=== PATIENT | male | born 1945 | race African-American/Black ===

== ENCOUNTER 2019-06-23 11:17 | Emergency (ER) | payer MEDICARE, MEDICAID | END 2019-06-23 12:00 | disposition home or self-care (01) | LOC: MADERS 11:17 | DX: J06.9 Acute upper respiratory infection, unspecified (principal); I10 Essential (primary) hypertension; F17.210 Nicotine dependence, cigarettes, uncomplicated | CPT/HCPCS: 99283 ==

== ENCOUNTER 2020-03-18 15:52 | Outpatient (CLI) | payer MEDICARE, MEDICAID ==
--- NOTE | 2020-03-18 18:19 | CT ---
CT HEAD WITHOUT CONTRAST: 03/18/20 INDICATIONS: Memory loss. There are no comparison exams. FINDINGS: There is abnormal vasogenic edema in the left temporal frontal lobe. There is evidence of an isodense to hyperdense mass in the region of the left basal ganglia possibly arising from the dural surface o f the planum sphenoidale or middle cranial fossa which measures in the 4 cm range. This is producing surrounding vasogenic edema and mass effect. There is midline shift measured at 4 to 5 mm at the sept um pellucidum. No hemorrhage identified. IMPRESSION: There is evidence of a mass involving the base of the brain on the left. This may involve the suprase llar region and extend superiorly into the left basal ganglia and left temporal frontal region. This is producing vasogenic edema and mass effect with slight midline shift. Recommend further evaluation with MRI of the brain with and without contrast. Spoke with ordering physician. POS: JONO
== END 2020-03-18 15:53 | disposition home or self-care (01) ==
LOC: MADCT 15:52
PROVIDERS: ATTEND Family Medicine
DX: R41.3 Other amnesia (principal); R22.0 Localized swelling, mass and lump, head; G93.6 Cerebral edema
CPT/HCPCS: 70450

== ENCOUNTER 2020-04-19 08:20 | Emergency (ER) | payer MEDICARE, MEDICAID ==
[~2020-04-19 08:20] MED LIST: Sodium Chloride 0.9% 1,000 ML BAG ONE
[2020-04-19 09:12] LABS: #Basophils 0.1 thou/uL (0.0-0.2); #Lymphocytes 0.5 thou/uL (1.20-3.40); #Monocytes 0.7 thou/uL (0.11-0.59); #Neutrophils 11.1 thou/uL (1.40-6.50); %Basophils 0.7 % (0.0-1.0); %Eosinophils 0.3 % (0.0-10.0); %Lymphocytes 4.2 % (21.0-51.0); %Monocytes 5.6 % (0.0-10.0); %Neutrophils 89.2 % (42.0-75.0); Hemoglobin 15.7 g/dL (14.0-18.0); Mean Corpuscular HGB CONC 31.2 g/dL (32.0-36.0); Mean Corpuscular Volume 89.8 fL (78.0-98.0); Mean Platelet Volume 9.1 fL (7.4-10.4); Platelet Count 158 thou/uL (130-400); RBC Distribution Width 12.1 % (11.5-14.5); Red Blood Cell (RBC) Count 5.61 mill/uL (4.70-6.10); White Blood Cell (WBC) Count 12.4 thou/uL (4.8-10.8)
--- NOTE | 2020-04-19 09:23 | CT ---
CT OF THE BRAIN WITHOUT CONTRAST Date: 04/19/2020 INDICATION: History of fall with possible head trauma. COMPARISON: Prior CT of the brain dated 03/18/2020. FINDINGS: The large extra-axial mass originating from the base of the left middle cranial fossa with mass effec t on the adjacent left anterior temporal lobe and left basal ganglia is relatively stable measuring 4 .3 cm, where it previously measured 4.2 cm. The extent of the vasogenic edema affecting the left temp oral lobe is similar appearing. The left to right midline shift of 4.6 mm is stable. No hydrocephalus is evident. No new acute intracranial hemorrhage is evident. Skull and extracranial soft tissues solomon ear within normal limits. IMPRESSION: 1. 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 The left to right midline shift of 4.6 mm is stable. 2. No acute intracranial hemorrhage or hydrocephalus is present. POS: AH
--- NOTE | 2020-04-19 09:25 | CT ---
CT CERVICAL SPINE NONCONTRAST: DATE: 04/19/2020 HISTORY: cervical trauma: 74-year-old male status post fall FINDINGS: There are no jumped or perched facets. There is no evidence of acute fracture. The vertebral body hei ghts are maintained. There is no prevertebral soft tissue swelling. There are degenerative disc changes and facet osteoarthrosis. IMPRESSION: 1) Cervical spondylosis. 2) no evidence of acute fracture or acute traumatic subluxation.
[2020-04-19 09:28] LABS: ALT (SGPT) 37 U/L (8-55); AST (SGOT) 11 U/L (5-34); Albumin 3.3 g/dL (3.4-4.8); Alkaline Phosphatase 70 U/L (40-110); Anion Gap 18 mmol/L (10-20); BUN (Urea Nitrogen) 38 mg/dL (8.4-25.7); Bilirubin, Total 0.6 mg/dL (0.2-1.2); Calc. Creatinine Clearance 0 mL/min (70-130); Calcium 9.1 mg/dL (7.8-10.44); Carbon Dioxide 22 mmol/L (23-31); Chloride 93 mmol/L (98-107); Estimated GFR-MDRD 45; Globulin 2.9 g/dL (2.4-3.5); Potassium 4.3 mmol/L (3.5-5.1); Protein, Total 6.2 g/dL (5.8-8.1); Sodium 129 mmol/L (136-145)
[2020-04-19 10:00] LABS: Glucose 548 mg/dL (83-110)
[2020-04-19 10:05] LABS: CKMB 2.4 ng/mL (0-6.6)
[2020-04-19 11:05] LABS: Bilirubin Negative (Negative); Blood, Urine Trace (Negative); Clarity Clear (Clear); Glucose, Urine (Dipstick) >=1000 mg/dL (Negative); Ketone, Urine Negative (Negative); Leukocyte Negative (Negative); Nitrite Negative (Negative); Protein, Urine (Dipstick) Negative (Neg-Trace); Urobilinogen 0.2 mg/dL (Less than 2); pH, Urine 5.5 (5.0-9.0)
[2020-04-19 11:06] LABS: Bacteria/HPF Rare-Few HPF (None Seen); RBC/HPF 0-3 HPF (0-3); Squamous Epithelial 0-3 HPF (0-3); WBC/HPF 0-3 HPF (0-3)
[2020-04-19 12:17] LABS: Troponin I 0.043 ng/mL (< 0.028)
== END 2020-04-19 14:49 | disposition short-term general hospital (02) ==
LOC: MADERS 08:20
DX: D32.0 Benign neoplasm of cerebral meninges (principal); R73.9 Hyperglycemia, unspecified; F17.210 Nicotine dependence, cigarettes, uncomplicated; I10 Essential (primary) hypertension; Z79.899 Other long term (current) drug therapy; W19.XXXA Unspecified fall, initial encounter
CPT/HCPCS: 36416; 70450; 72125; 80053; 81003; 81015; 82553; 84443; 84484; 85025; 86140; 93005; J7050

== ENCOUNTER 2021-03-20 13:46 | Emergency (ER) | payer MEDICARE, MEDICAID | END 2021-03-20 14:30 | disposition home or self-care (01) | LOC: MADERS 13:46 | DX: R41.0 Disorientation, unspecified (principal); E11.9 Type 2 diabetes mellitus without complications; I10 Essential (primary) hypertension; F17.210 Nicotine dependence, cigarettes, uncomplicated | CPT/HCPCS: 99284 ==

== ENCOUNTER 2021-04-08 10:25 | Emergency (ER) | payer MEDICARE, MEDICAID ==
[2021-04-08 11:30] LABS: Bilirubin Negative (Negative); Blood, Urine Negative (Negative); Clarity Clear (Clear); Glucose, Urine (Dipstick) Negative (Negative); Ketone, Urine Negative (Negative); Leukocyte Negative (Negative); Nitrite Negative (Negative); Protein, Urine (Dipstick) 30 mg/dL (Neg-Trace); Urobilinogen 0.2 mg/dL (Less than 2)
[2021-04-08 11:32] LABS: Specific Gravity, Urine 1.025 (1.002-1.036)
[2021-04-08 11:38] LABS: ALT (SGPT) 47 U/L (8-55); AST (SGOT) 31 U/L (5-34); Albumin 3.7 g/dL (3.4-4.8); Alkaline Phosphatase 71 U/L (40-110); Anion Gap 16 mmol/L (10-20); BUN (Urea Nitrogen) 38 mg/dL (8.4-25.7); Bilirubin, Total 0.5 mg/dL (0.2-1.2); Calc. Creatinine Clearance 0 mL/min (70-130); Calcium 9.5 mg/dL (7.8-10.44); Carbon Dioxide 20 mmol/L (23-31); Chloride 103 mmol/L (98-107); Globulin 3.4 g/dL (2.4-3.5); Glucose 121 mg/dL (83-110); Potassium 4.8 mmol/L (3.5-5.1); Protein, Total 7.1 g/dL (5.8-8.1); Sodium 134 mmol/L (136-145)
[2021-04-08 11:40] LABS: RBC/HPF 0-3 HPF (0-3); Squamous Epithelial 0-3 HPF (0-3); WBC/HPF None Seen HPF (0-3)
[2021-04-08 11:41] LABS: Bacteria/HPF Rare-Few HPF (None Seen)
[2021-04-08 11:56] LABS: Band 8 % (5-11); Lymphocytes 17 % (21-51); MDiff Complete? YES; Mean Corpuscular HGB CONC 30.6 g/dL (32.0-36.0); Mean Corpuscular Hemoglobin 25.6 pg (27.0-31.0); Mean Corpuscular Volume 83.8 fL (78.0-98.0); Metamyelocyte 1 % (0-0); Microcytosis SLIGHT = 6-15 cells (100X) (0-5/hpf); Monocytes 9 % (0-10); Neutrophil 65 % (42-75); Platelet Count 170 thou/uL (130-400); Platelet Morphology Comment Appears Adequate; Poikilocytosis SLIGHT = 6-15 cells (100X) (0-5/hpf); RBC Distribution Width 16.5 % (11.5-14.5); Red Blood Cell (RBC) Count 5.48 mill/uL (4.70-6.10); White Blood Cell (WBC) Count 8.1 thou/uL (4.8-10.8)
[2021-04-09 00:33] LABS: SARS-CoV-2 PCR by NAA DETECTED (NotDetected)
== END 2021-04-08 13:56 | disposition home or self-care (01) ==
LOC: MADERS 10:25
DX: U07.1 COVID-19 (principal); N17.9 Acute kidney failure, unspecified; I10 Essential (primary) hypertension; E11.9 Type 2 diabetes mellitus without complications; F17.210 Nicotine dependence, cigarettes, uncomplicated; Z79.4 Long term (current) use of insulin; Z79.84 Long term (current) use of oral hypoglycemic drugs; Z79.899 Other long term (current) drug therapy
CPT/HCPCS: 71045; 80053; 83605; 85025; 87804 ×2; 99283; U0003; U0005; 81003; 81015; J7050

== ENCOUNTER 2021-04-15 10:38 | Emergency (ER) | payer MEDICARE, MEDICAID ==
[~2021-04-15 10:38] MED LIST changes: +EPINEPHrine 1 MG/10 ML Abboject SYRINGE ONE; -Sodium Chloride 0.9% 1,000 ML BAG ONE
[2021-04-15 10:54] LABS: #Lymphocytes 1.5 thou/uL (1.20-3.40); #Monocytes 0.3 thou/uL (0.11-0.59); #Neutrophils 6.8 thou/uL (1.40-6.50); %Basophils 0.3 % (0.0-1.0); %Eosinophils 0.4 % (0.0-10.0); %Lymphocytes 17.1 % (21.0-51.0); %Neutrophils 79.3 % (42.0-75.0); Hemoglobin 9.7 g/dL (14.0-18.0); Mean Corpuscular HGB CONC 30.2 g/dL (32.0-36.0); Mean Corpuscular Hemoglobin 26.7 pg (27.0-31.0); Mean Corpuscular Volume 88.2 fL (78.0-98.0); Mean Platelet Volume 12.7 fL (7.4-10.4); Platelet Count 186 thou/uL (130-400); RBC Distribution Width 18.4 % (11.5-14.5); Red Blood Cell (RBC) Count 3.66 mill/uL (4.70-6.10); White Blood Cell (WBC) Count 8.6 thou/uL (4.8-10.8)
[2021-04-15 11:08] LABS: ALT (SGPT) 766 U/L (8-55); AST (SGOT) 1066 U/L (5-34); Albumin 2.1 g/dL (3.4-4.8); Alkaline Phosphatase 72 U/L (40-110); Anion Gap 45 mmol/L (10-20); BUN (Urea Nitrogen) 105 mg/dL (8.4-25.7); Bilirubin, Total 1.3 mg/dL (0.2-1.2); Calc. Creatinine Clearance 0 mL/min (70-130); Calcium 8.5 mg/dL (7.8-10.44); Carbon Dioxide 12 mmol/L (23-31); Chloride 119 mmol/L (98-107); Glucose 91 mg/dL (83-110); Protein, Total 5.1 g/dL (5.8-8.1)
[2021-04-15 11:10] LABS: Sodium 167 mmol/L (136-145)
[2021-04-15 11:23] LABS: Anisocytosis MODERATE=16-30 cells (100X) (0-5/hpf); Nucleated RBC 0 % (0); Poikilocytosis MODERATE=16-30 cells (100X) (0-5/hpf); Polychromasia SLIGHT = 2-3 cells (100X) (0-2/hpf)
[2021-04-15 11:24] LABS: Giant Platelets SLIGHT; Large Platelets SLIGHT; Platelet Morphology Comment Appears Adequate
[2021-04-15 11:26] LABS: CKMB 5.6 ng/mL (0-6.6)
== END 2021-04-15 12:35 | disposition expired ==
LOC: MADERS 10:38
DX: U07.1 COVID-19 (principal); I46.9 Cardiac arrest, cause unspecified; E11.9 Type 2 diabetes mellitus without complications; I10 Essential (primary) hypertension; F17.210 Nicotine dependence, cigarettes, uncomplicated; Z85.841 Personal history of malignant neoplasm of brain
CPT/HCPCS: 36415; 80053; 82550; 82553; 84484; 85025; 92950; 94760; 96374; J0171